=== PATIENT | female | born 1990 | race African-American/Black ===

== ENCOUNTER 2023-01-04 18:59 | Emergency (ER) | payer MEDICAID ==
[~2023-01-04] VITALS: Ht 170.2 cm; Wt 163.0 kg
[2023-01-04] MEDS ORDERED: NAPR-1024 PO (19:13)
[2023-01-04] MEDS ORDERED: BISM-171 PO (19:13)
[2023-01-04] MEDS ORDERED: FAMO20 PO (19:13)
[2023-01-04] MEDS ORDERED: OMEP20CA12 PO (19:13)
[2023-01-04] MEDS ORDERED: DOXY50 PO (19:13)
[2023-01-04] MEDS ORDERED: METR375C7 PO (19:13)
[2023-01-04 20:14] LABS: EOSINOPHILS % (AUTO) 2.5 % (1.0-6.0); HEMATOCRIT 36.1 % (36-46); HEMOGLOBIN 11.5 g/dL (12.0-16.0); LYMPHOCYTES # (AUTO) 1.7 K/uL (1.0-4.8); LYMPHOCYTES % (AUTO) 32.8 % (22.0-44.0); MEAN CORPUSCULAR HEMOGLOBIN 25.3 pg (26.0-34.0); MEAN CORPUSCULAR HGB CONC 31.9 G/dL (31.0-37.0); MEAN CORPUSCULAR VOLUME 79 fL (80-100); MONOCYTES # (AUTO) 0.4 K/uL (0.1-1.0); MONOCYTES % (AUTO) 8.4 % (2.0-9.0); NEUTROPHILS # (AUTO) 2.8 K/uL (1.8-7.7); NEUTROPHILS % (AUTO) 55.3 % (40.0-70.0); PLATELET COUNT (AUTO) 353 K/uL (150-450); RED BLOOD CELL COUNT(AUTO) 4.56 MIL/uL (4.00-5.20); RED CELL DISTRIBUTION WIDTH 14.7 % (11.5-14.5); WHITE BLOOD COUNT (AUTO) 5.1 K/uL (4.5-11.0)
[2023-01-04 20:21] VITALS: TEMP 97.8
[2023-01-04 20:21] LABS: ANION GAP 4 mmol/L (8-16); CALCIUM, TOTAL 8.9 mg/dL (8.8-10.5); CARBON DIOXIDE 29 mmol/L (22-29); CHLORIDE 105 mmol/L (98-107); CREATININE 0.93 mg/dL (0.60-1.30); GLOMERULAR FILTR. RATE CALC > 60 mL/min (>60); GLUCOSE,RANDOM 88 mg/dL (70-110); POTASSIUM 4.1 mmol/L (3.5-5.1); SODIUM SERUM 138 mmol/L (136-145); UREA NITROGEN, BLOOD 11 mg/dL (7-18)
[2023-01-04 20:26] LABS: ALANINE AMINOTRANSFERASE 26 U/L (12-78); ALBUMIN 3.2 g/dL (3.4-5.0); ALKALINE PHOSPHATASE 74 U/L (46-116); ASPARTATE AMINOTRANSFERASE 25 U/L (15-37); BILIRUBIN,TOTAL 0.1 mg/dL (0.1-1.0)
[2023-01-04 20:28] LABS: TROPONIN I-HIGH SENSITIVITY 6 ng/L (<51)
[2023-01-04 20:32] LABS: B-TYPE NATRIURETIC PEPTIDE 18 pg/mL (0-100)
[2023-01-04 21:02] LABS: APPEARANCE,URINE CLEAR (CLEAR); BILIRUBIN,URINE NEGATIVE (NEGATIVE); COLOR,URINE LIGHT YELLOW (YELLOW); GLUCOSE, URINE (UA) NEGATIVE (NEGATIVE); KETONES,URINE NEGATIVE (NEGATIVE); LEUKOCYTE ESTERASE ,URINE NEGATIVE (NEGATIVE); NITRATE,URINE NEGATIVE (NEGATIVE); OCCULT BLOOD,URINE NEGATIVE (NEGATIVE); PH,URINE 5.5 (5.0-8.0); PROTEIN,URINE NEGATIVE (NEGATIVE); SPECIFIC GRAVITIY, URINE 1.018 (1.003-1.030); UROBILINOGEN,URINE <=1.0 mg/dL (<=1.0)
[2023-01-04] MEDS ORDERED: TraMADol HCL 50 MG TABLET PO ONE (21:30)
[2023-01-04 21:54] VITALS: BP 133/87; PULSE 78; RESP 18
[2023-01-04] MEDS ORDERED: POLY119P3 PO (22:48)
== END 2023-01-04 23:01 | disposition home or self-care (01) ==
LOC: EMS 19:01
DX: K59.00 Constipation, unspecified (principal); R10.9 Unspecified abdominal pain; Z98.890 Other specified postprocedural states
CPT/HCPCS: 71045; 74019; 80053; 81003; 83880; 84484; 85025; 93005; 99285; 36415-L1; 36415-TC

== ENCOUNTER 2025-02-01 23:48 | Emergency (ER) | payer SELFPAY ==
[~2025-02-01] VITALS: Ht 182.9 cm; Wt 146.4 kg
[~2025-02-01 23:48] MED LIST: BISM-171 PO; DOXY50 PO; FAMO20 PO; METR375C7 PO; NAPR-1195 PO; OMEP20CA12 PO; POLY119P3 PO
[2025-02-02 00:16] LABS: COVID AG,FIA SOURCE NASAL SWAB
[2025-02-02 00:40] LABS: PLATELET COUNT (AUTO) 332 K/uL (150-450); RED BLOOD CELL COUNT(AUTO) 4.46 MIL/uL (4.00-5.20); RED CELL DISTRIBUTION WIDTH 15.2 % (11.5-14.5); WHITE BLOOD COUNT (AUTO) 6.1 K/uL (4.5-11.0)
[2025-02-02 00:42] LABS: INFLUENZA TYPE A NEGATIVE FOR TYPE A (NEGATIVE); INFLUENZA TYPE B NEGATIVE FOR TYPE B (NEGATIVE); SARS-COV2 (COVID) ANTIGEN,FIA Negative (Negative)
[2025-02-02 00:53] LABS: CALCIUM, TOTAL 8.6 mg/dL (8.8-10.5); CREATININE 0.82 mg/dL (0.60-1.30); GLOMERULAR FILTR. RATE CALC > 60 mL/min (>60); GLUCOSE,RANDOM 92 mg/dL (70-110); SODIUM SERUM 139 mmol/L (136-145); UREA NITROGEN, BLOOD 10 mg/dL (7-18)
[2025-02-02 00:57] LABS: ASPARTATE AMINOTRANSFERASE 54.0 U/L (15-37); TOTAL PROTEIN, SERUM 7.0 g/dL (6.4-8.2)
[2025-02-02 01:03] LABS: TROPONIN I-HIGH SENSITIVITY 7 ng/L (<51)
[2025-02-02 05:39] VITALS: BP 124/65; PULSE 71; RESP 17; TEMP 97.3; O2SAT 100
== END 2025-02-02 05:45 | disposition home or self-care (01) ==
LOC: EMS 23:55
DX: R07.81 Pleurodynia (principal); R10.13 Epigastric pain; R42 Dizziness and giddiness; Z98.890 Other specified postprocedural states; Z79.899 Other long term (current) drug therapy; Z20.822 Contact with and (suspected) exposure to COVID-19
CPT/HCPCS: 71045; 80048; 80076; 84484; 85025; 87804; 93005; 99285; 36415-L1; 36415-TC